=== PATIENT | female | born 2000 | race Caucasian/White ===

== ENCOUNTER 2022-09-30 07:59 | Outpatient (CLI) | payer OTHER, BC, SELFPAY ==
[2022-09-30 08:25] LABS: Basophils Absolute Auto 0.1 K/mm3 (0.0-0.1); Basophils Percent Auto 0.6 % (0.2-1.2); Eosinophils Absolute Auto 0.1 K/mm3 (0-0.3); Eosinophils Percent Auto 1.7 % (0-4.4); Hematocrit 40.2 % (37.0-47.0); Hemoglobin 12.9 g/dL (12.0-15.0); Immature Granulocyte Absolute 0.02 K/mm3 (0.00-0.031); Immature Granulocyte Percent A 0.2 % (0-0.5); Mean Corpuscular HGB Conc 32.1 g/dl (32-36); Mean Corpuscular Hemoglobin 30.6 pg (26-34); Mean Corpuscular Volume 95.5 fl (80-100); Mean Platelet Volume 11.5 fl (7.4-10.4); Monocytes Absolute Auto 0.4 K/mm3 (0.1-0.6); Monocytes Percent Auto 5.1 % (2.6-8.5); Neutrophils Absolute Auto 5.4 K/mm3 (1.3-6.7); Neutrophils Percent Auto 66.4 % (45.5-73.1); Platelet Count Result 222 k/mm3 (150-375); Red Blood Count 4.21 M/mm3 (4.2-5.4); Red Cell Distribution Width 12.2 % (11.5-14.5); White Blood Count 8.1 K/mm3 (4.5-10.0)
== END 2022-09-30 08:00 | disposition home or self-care (01) ==
LOC: ANHLAB 08:09
PROVIDERS: PCP Family Medicine Sports Medicine
DX: R59.1 Generalized enlarged lymph nodes (principal)
CPT/HCPCS: 36415; 85025

== ENCOUNTER 2022-11-02 15:03 | Outpatient (CLI) | payer OTHER, SELFPAY ==
--- NOTE | ~2022-11-02 | XR_ITS ---
EXAMINATION: XR foot RT min 3V DATE: 11/02/2022 16:08 INDICATION: Painful hard spot the plantar surface between the third and fourth toes TECHNIQUE: Weight bearing dorsal plantar, two oblique and lateral views of the right foot were obtai linda. COMPARISON: None. FINDINGS: Alignment is normal. No fracture. Joint spaces are normal. Soft tissues are unremarkable. No dystroph ic calcific lesions or radiopaque foreign bodies. IMPRESSION: 1. Negative right foot radiographs. Reviewed, dictated and finalized at location A. NT CLERK
== END 2022-11-02 15:04 | disposition home or self-care (01) ==
LOC: ANHIMG 15:08
PROVIDERS: PCP Family Medicine Sports Medicine
DX: L84 Corns and callosities (principal)
CPT/HCPCS: 73630

== ENCOUNTER 2022-11-18 07:42 | Outpatient (CLI) | payer OTHER, SELFPAY ==
[2022-11-18 08:22] LABS: Alanine Aminotransferase 25 U/L (6-35); Albumin Level 4.2 g/dL (3.5-5.1); Alkaline Phosphatase 66 U/L (38-126); Anion Gap 8 mmol/L (8-16); Aspartate Amino Transferase 25 U/L (14-36); Bilirubin,Total 0.5 mg/dL (0.2-1.3); Blood Urea Nitrogen 14 mg/dL (7-17); Calcium 9.1 mg/dL (8.4-10.2); Carbon Dioxide 27 mmol/L (22-30); Chloride 103 mmol/L (98-107); Cholesterol 195 mg/dL (0-200); Estimated Glomerular Filt Rate > 60; Glucose 200 mg/dL (65-110); HDL Direct 96 mg/dL; Potassium 4.2 mmol/L (3.4-5.0); Sodium 138 mmol/L (137-145); Triglycerides 94 mg/dL (<150)
[2022-11-18 08:33] LABS: LDL Cholesterol Direct 75 mg/dL
[2022-11-18 10:58] LABS: Creatinine Urine 137.6 mg/dL
[2022-11-18 11:32] LABS: MALB Creatinine Ratio < 4.4 mg/g (0-30); Microalbumin Urine Random < 6.0 mg/L (0-16.7)
== END 2022-11-18 07:43 | disposition home or self-care (01) ==
PROVIDERS: PCP Family Medicine Sports Medicine; Visit Provider Internal Medicine
DX: E10.9 Type 1 diabetes mellitus without complications (principal)
CPT/HCPCS: 36415; 80053; 80061; 82043

== ENCOUNTER 2023-04-14 16:40 | Emergency (ER) | payer OTHER, SELFPAY ==
[2023-04-14 16:49] VITALS: BP 118/70; PULSE 85; RESP 16; TEMP 37.1; O2SAT 100
--- NOTE | 2023-04-14 17:26 | ED.URI ---
HPI - URI/Sore Throat General Chief Complaint: Upper Respiratory Infection Stated Complaint: Sore Throat Time Seen by Provider: 04/14/23 17:17 Source: patient and RN notes reviewed Mode of arrival: ambulatory Limitations: no limitations History of Present Illness HPI Narrative: Patient presents today complaining of a 2 day history of sore throat that has been worsening since onset. Denies any additional symptoms to include fever, cough, congestion, rhinorrhea. Currently rates her pain 5/10, which increases with swallowing. She has been taking some ibuprofen with mild relief. Denies any known sick contacts. Related Data Home Medications Medication Instructions Recorded Confirmed norgestimate 0.25 mg-ethinyl 1 tablet PO DAILY 11/17/22 04/14/23 estradiol 35 mcg tablet (Sprintec (28)) Allergies Allergy/AdvReac Type Severity Reaction Status Date / Time Augmentin AdvReac Intermediate Headache Uncoded 04/14/23 16:47 Review of Systems Review of Systems: CONSTITUTIONAL: Denies body aches, fever, chills, or sweats. EYES: Denies visual changes, redness, or discharge. ENT: Denies rhinorrhea, congestion, or otalgia.+ sore throat CARDIOVASCULAR: Denies chest pain, palpitations, or edema. RESPIRATORY: Denies cough or dyspnea. GASTROINTESTINAL: Denies abdominal pain, nausea, vomiting, or diarrhea. GENITOURINARY: Denies dysuria or hematuria. SKIN: Denies rash, itching, or wounds. MUSCULOSKELETAL: Denies back pain, joint pain, or myalgia. NEUROLOGIC: Denies headache, numbness, tingling, or weakness. PSYCH: Denies depression or anxiety. PMFSH Past Medical History Medical History Diabetes Social History Social History Smoking status: Never smoker Comments At time of signature, I have reviewed and agree with nursing past medical, surgical, social and family history unless otherwise noted. Please see nursing chart for further information. There is no relevant family history pertinent to the presenting complaint Exam Narrative: GENERAL: Well-appearing, well-nourished, and in no acute distress. HEAD: Normocephalic, atraumatic. EYES: EOMI. No redness or drainage. Conjunctivae normal. ENT: Mucous membranes pink and moist. Nares clear. No rhinorrhea. TMs normal bilaterally. Tonsils 2+. Pharynx erythematous. Scant amount of exudate on the tonsils. Uvula midline. NECK: Normal AROM. Supple. Left posterior cervical chain lymphadenopathy. CHEST: No respiratory distress. Clear to auscultation. HEART: Regular rate and rhythm. No murmur appreciated. Normal peripheral pulses. EXTREMITIES: Normal range of motion. No edema. SKIN: Warm, dry, no rash. Capillary refill normal. Normal skin turgor. NEURO: No focal deficits. Alert and oriented x3. Gait steady. PSYCH: Normal affect. No signs of depression or anxiety. Course Course Level of Care: Express Care Visit Vital Signs Vital signs: Vital Signs Temperature 98.7 F 04/14/23 16:49 Pulse Rate 85 04/14/23 16:49 Respiratory Rate 16 04/14/23 16:49 Blood Pressure 118/70 04/14/23 16:49 Pulse Oximetry 100 04/14/23 16:49 Oxygen Delivery Room Air 04/14/23 16:49 Temperature 98.7 F 04/14/23 16:49 Pulse Rate 85 04/14/23 16:49 Respiratory Rate 16 04/14/23 16:49 Blood Pressure 118/70 04/14/23 16:49 Pulse Oximetry 100 04/14/23 16:49 Oxygen Delivery Room Air 04/14/23 16:49 Reviewed MDM - URI/Sore Throat MDM Narrative Medical decision making narrative: Rapid strep negative. Culture pending. Symptoms likely viral in etiology. No prescription medications indicated at this time. Anticipatory guidance given. Differential Diagnosis Differential diagnosis: Likely upper respiratory infection, viral infection, pharyngitis and other (Strep throat) Lab Data Attestation: I reviewed the patient's lab results.
== END 2023-04-14 17:28 | disposition home or self-care (01) ==
PROVIDERS: Emergency Provider Nurse Practitioner; PCP Family Medicine Sports Medicine
DX: J02.9 Acute pharyngitis, unspecified (principal); E11.9 Type 2 diabetes mellitus without complications
CPT/HCPCS: 87081; 87880; 99213; G0463

== ENCOUNTER 2023-05-28 10:13 | Outpatient (CLI) | payer OTHER, SELFPAY ==
--- NOTE | ~2023-05-28 | XR_ITS ---
EXAMINATION: XR foot LT min 3V DATE: 05/28/2023 10:31 INDICATION: Posttraumatic pain to the fourth toe TECHNIQUE: Dorsoplantar, two oblique and lateral views of the left foot were obtained. COMPARISON: None. FINDINGS: Nondisplaced fracture at the middle phalanx of the left fourth toe, fracture extends towards the prox imal articular surface however there is no evident fracture gap or incongruity along the articular co rtex. Alignment is essentially anatomic. No other fractures identified. Joint spaces are normal. Mild soft tissue swelling about the fourth toe. IMPRESSION: 1. Nondisplaced fracture potentially intra-articular of the left fourth middle phalanx. Reviewed, dictated and finalized at location A.
== END 2023-05-28 10:14 | disposition home or self-care (01) ==
LOC: ANHIMG 10:18
PROVIDERS: PCP Family Medicine Sports Medicine
DX: S92.525A Nondisplaced fracture of middle phalanx of left lesser toe(s), initial encounter for closed fracture (principal); X58.XXXA Exposure to other specified factors, initial encounter
CPT/HCPCS: 73630

== ENCOUNTER 2023-11-25 06:45 | Outpatient (CLI) | payer OTHER, SELFPAY ==
[2023-11-25 07:31] LABS: Alanine Aminotransferase 20 U/L (6-35); Albumin Level 4.2 g/dL (3.5-5.1); Alkaline Phosphatase 58 U/L (38-126); Anion Gap 7 mmol/L (8-16); Aspartate Amino Transferase 24 U/L (14-36); Bilirubin,Total 0.4 mg/dL (0.2-1.3); Blood Urea Nitrogen 11 mg/dL (7-17); Calcium 9.4 mg/dL (8.4-10.2); Carbon Dioxide 26 mmol/L (22-30); Chloride 106 mmol/L (98-107); Cholesterol 194 mg/dL (0-200); Estimated Glomerular Filt Rate > 60; Glucose 146 mg/dL (65-110); HDL Direct 95 mg/dL; Potassium 3.9 mmol/L (3.4-5.0); Sodium 139 mmol/L (137-145); Triglycerides 119 mg/dL (<150)
[2023-11-25 07:44] LABS: LDL Cholesterol Direct 88 mg/dL
[2023-11-25 07:49] LABS: Free T4 Free Thyroxine 0.89 ng/mL (0.78-2.19); Vitamin D 25 Hydroxy 49.6 ng/mL
[2023-11-25 10:45] LABS: Creatinine Urine 210.3 mg/dL
[2023-11-25 11:52] LABS: Microalbumin Urine Random < 6.0 mg/L (0-16.7)
[2023-11-25 11:53] LABS: MALB Creatinine Ratio < 2.9 mg/g (0-30)
== END 2023-11-25 06:46 | disposition home or self-care (01) ==
PROVIDERS: PCP Family Medicine Sports Medicine; Visit Provider Nurse Practitioner Family
DX: E11.9 Type 2 diabetes mellitus without complications (principal)
CPT/HCPCS: 36415; 80053; 80061; 82043; 82306; 82607; 84439; 84443

== ENCOUNTER 2024-10-16 07:03 | Outpatient (CLI) | payer OTHER, SELFPAY ==
[2024-10-16 07:43] LABS: Alanine Aminotransferase 23 U/L (6-35); Albumin Level 4.1 g/dL (3.5-5.1); Alkaline Phosphatase 64 U/L (38-126); Anion Gap 10 mmol/L (4-12); Aspartate Amino Transferase 23 U/L (14-36); Bilirubin,Total 0.4 mg/dL (0.2-1.3); Blood Urea Nitrogen 19 mg/dL (7-17); Calcium 9.5 mg/dL (8.4-10.2); Carbon Dioxide 27 mmol/L (22-30); Chloride 103 mmol/L (98-107); Cholesterol 221 mg/dL (0-200); Estimated Glomerular Filt Rate > 60; Glucose 200 mg/dL (65-110); HDL Direct 110 mg/dL; Potassium 4.2 mmol/L (3.4-5.0); Sodium 140 mmol/L (137-145); Triglycerides 85 mg/dL (<150)
[2024-10-16 07:54] LABS: LDL Cholesterol Direct 103 mg/dL
[2024-10-16 09:33] LABS: Free T4 Free Thyroxine 0.96 ng/dL (0.78-2.19); Vitamin D 25 Hydroxy 35.8 ng/mL
[2024-10-16 12:21] LABS: Creatinine Urine 130.9 mg/dL
[2024-10-16 12:38] LABS: Microalbumin Urine Random < 6.0 mg/L (0-16.7)
[2024-10-16 12:39] LABS: MALB Creatinine Ratio < 4.6 mg/g (0-30)
--- OUTSIDE RECORDS SUMMARY | 2024-10-19 11:29 | XMS_ITS | Encounter Summary ---
Author Organization [facility] Address [address] [place] [address]. [place] [address] [place] [address] Care Team Providers Care Crime Data Specialist Name Role Phone Bill Perez MD Primary Care Provider [phone] Encounter Details Date Type Department Care Team (Late st Contact Info) Description 12/29/2023 [facility] Message [facility] [address] [place] [address] [facility] Provider Schedule Appointment - Annual Physical Social History Tobacco Use Types Packs/Day Years Used Date Smoking Tobacco: Never Smokeless Tobacco: Never Alcohol Use Standard Drinks/Week Comments No 0 (1 standard drink = 0.6 oz pur e alcohol) AUDIT-C Answer Date Recorded Frequency of Alcohol Consumption Never 12/27/2018 Average Number of Drinks Not on file 019 Frequency of Binge Drinking Not on file 10/2018 PHQ-2 Answer Date Recorded Patient Health Questionnaire-2 Score 0 09/29/2022 Comments No Sex and Gender Information Value Date Recorded Sex Assigned at Not on file Legal Sex Female 8:36 PM CDT Gender Identity Not on file Sexual Orientation Not on file documented as of this encounter Plan of Treatment Not on file documented as of this encounter Visit Diagnoses Not on filedocumented in this encounter Additional Health Concerns Assessment Noted Time PHQ-9 Depression Total Score: 0 04/09/20 21 2:59 PM CDT documented as of this encounter Care Teams Crime Data Specialist Relationship Specialty Start Date End Date Bill Perez MD [address] [place] [address] PCP - General FAMILY PRACTICE 09/16/18 documented as of this encounter
--- OUTSIDE RECORDS SUMMARY | 2024-10-19 11:29 | XMS_ITS | Clinical Summary ---
Author Organization [facility] [employer] Address [address] [place] [address] Care Team Providers Care Pilot Plant Supervisor Name Role Phone Unavailable Primary Care Provider Unavailabl e Source Comments [facility],non-owned Affiliates and Associated Physician Practices is amultiple site organization consisting of ambulatory clinics and hospital sitesin [place], [place], [place] and [place]. This disclosure is being madepursuant to the Care Everywhere program and may not contain all information available regarding this patient. Last updated 18.[facility] Social History Tobacco Use Types Packs/Day Years Used Date Smoking Tobacco: Never Assessed Sex and Gender Information Value Date Recorded Sex Assigned at Not on file Gender Identity Not on file Sexual Orientation Not on file Plan of Treatment Health Maintenance Due Date Last Done Comments PAP SMEAR 2000 HIV SCREENING 2015 HPV VACCINE (1 - 3-dose series) 2015 CHLAMYDIA/GONORRHEA SCREENING 2016 HEPATITIS C SCREENING 04/01/2018 DTAP/TDAP/TD VACCINES (1 - Tdap) 2019 HEPATITIS B VACCINE (1 of 3 - 19+ 3-dose series) 2019 COVID-19 VACCINE ( - 2023-2 5 season) 2024 INFLUENZA VACCINE (#1) 2024 DEPRESSION SCREENING 09/27/2024 ZOSTER VACCINE (1 of 2) 2050 HIB VACCINE Aged Out No longer eligi ble based on patient's age to complete this topic MENINGOCOCCAL (Group B) VACCINE Aged Out No longer eligible based on patient's age to complete this topic MENINGOCOCCAL VACCINE Aged Out No leola fide eligible based on patient's age to complete this topic PNEUMOCOCCAL VACCINE Aged Out No long er eligible based on patient's age to complete this topic
--- OUTSIDE RECORDS SUMMARY | 2024-10-19 11:29 | XMS_ITS | Referral Summary ---
Author Organization [facility] Address [address] [place] [address] Care Team Providers Care Flea Market Seller Name Role Phone Unavailable Primary Care Provider Unavailabl e Source Comments [facility],non-owned Affiliates and Associated Physician Practices is amultiple site organization consisting of ambulatory clinics and hospital sitesin [place], [place], [place] and [place]. This disclosure is being madepursuant to the Care Everywhere program and may not contain all information available regarding this patient. Last updated 18.[facility] [employer] Social History Tobacco Use Types Packs/Day Years Used Date Smoking Tobacco: Never Assessed Sex and Gender Information Value Date Recorded Sex Assigned at Not on file Gender Identity Not on file Sexual Orientation Not on file Plan of Treatment Not on file
--- OUTSIDE RECORDS SUMMARY | 2024-10-19 11:29 | XMS_ITS | Patient Health Summary ---
Author Organization [facility] Address [address] [place] [address] Care Team Providers Care Investment Analyst Name Role Phone Unavailable Primary Care Provider Unavailabl e Note from [facility],non-owned Affiliates and Associated Physician Practices is amultiple site organization consisting of ambulatory clinics and hospital sitesin [place], [place], [place] and [place]. This disclosure is being madepursuant to the Care Everywhere program and may not contain all information available regarding this patient. Last updated 18.[facility] Social History Tobacco Use Types Packs/Day Years Used Date Smoking Tobacco: Never Assessed Sex and Gender Information Value Date Recorded Sex Assigned at Not on file Gender Identity Not on file Sexual Orientation Not on file
--- OUTSIDE RECORDS SUMMARY | 2024-10-19 11:29 | XMS_ITS | Clinical Summary ---
Author Organization [facility] Address [address] [place] [address]. [place] [address] [place] [address] Care Team Providers Care Record Tabulating Clerk Name Role Phone Bill Perez MD Primary Care Provider Allergies Active Allergy Reactions Criticality Noted Date Comments Amoxicillin-Pot Clavulanate Headache Low 01/16/20 22 Cephalexin Headache 02/26/2024 Medications SPRINTEC 28 0.25-35 MG-MCG tablet Take 1 tablet by mouth nightly at bedtime. 9 Active LANTUS SOLOSTAR 100 UNIT/ML injection (PEN) Inject 20 Units into the skin every morning. Inject 20 units sub-q in the morning and 3 units at night 2 Active INPEN [id number] -HUMALOG Device Inject into the skin see administration instructions. Inject 1:8 ICR 0.5-1 UNITS FOR EVERY 40 IF BG>140 AC. MAX UP TO 60 UNITS A DAY 4 Active insulin glargine (LANTUS) 100 UNIT/ML injection (PEN) Inject 1.5-3 Units into the skin nightly at bedtime. Dosed based on BG Active Multiple Vitamins-Casting Wheel Operator als (MULTIVITAMIN ADULT) Chew Tab Chew 1 chewable tablet by mouth daily. Active HUMALOG 100 UNIT/ML injection (CARTRIDGE) INJECT A MAX 40 UNITS SUBCUTANEOUSLY DIRECTED. 1 UNIT FOR EVERY 8 GRAMS OF CARBS AND 1 UNIT FOR 50 MG/DL GREATER THAN 150 MG/DL. 4 Active Active Problems Problem Noted Date Diagnosed Date Enteritis 02/26/2024 Paronychia of finger 08/03/2017 Type 1 diabetes mellitus wit h hyperglycemia ([facility]) 08/29/2012 Overview (12/28/2018): seeing phone manager Resolved Problems Problem Noted Date Diagnosed Date Resolved Date Never smoked tobacco 02/26/2015 020 Immunizations Name Administration Dates Next Due Dtap 07/05/2001, 1,2000,06/17 Dtap (Generic) 2000 Dtap/Hep B/Ipv 07/05/2001, 1,2000,06/12 Hepatitis B 07/05/2001,2000,2000 Hib Vaccine, Prp-Omp 07/05/2001,2000,06/17 Influenza Adult (Generic) 06/30/2018 MMR 04/12/2001 MMR (Generic) 04/29/2011,04/12/2001 Menactra 05/18/2017 Meningococcal Vac A,C,Y,W-135 Sc 05/18/2017 Polio Ipv (Generic) 04/29/2011, 1,2000,06/17 Tdap (Generic) 04/29/2011 Tdap (Historical Only-select from [employer]) 12/27/2018 Social History Tobacco Use Types Packs/Day Years Used Date Smoking Tobacco: Never Passive Smoke Exposure: Never Smokeless Tobacco: Never Tobacco Cessation:Counseling Given: No Alcohol Use Standard Drinks/Week Comments No 0 (1 standard drink = 0.6 oz pur e alcohol) [facility] Utilities Answer Date Recorded In the past 12 months has e Shareable Social, gas, oil, or water Box[employer] threatened to shut off services in your home? No 02/26/2024 Humiliation, Afraid, Rape, and Kick questionnair e Answer Date Recorded Within the last year, have y ou been afraid of your partner or ex-partner? No 02/26/2024 Within the last year, have y ou been humiliated or emotionally abused in other ways by your partner or ex-partner? No Within the last year, have y ou been kicked, hit, slapped, or otherwise physically hurt by your partner or ex-partner? No 02/26/2024 Within the last year, have y ou been raped or forced to have any kind of sexual activity by your partner or ex-partner? No 02/26/2024 AUDIT-C Answer Date Recorded Frequency of Alcohol Consumption Never 12/27/2018 Average Number of Drinks Not on file 019 Frequency of Binge Drinking Not on file 10/2018 Overall Financial Resource Strain (CARDIA) Answe r Date Recorded How hard is it for you to pa y for the very basics like food, housing, medical care, and heating? Not hard at all 02/26/2024 PHQ-2 Answer Date Recorded Patient Health Questionnaire-2 Score 0 03/08/2024 Hunger Vital Sign Answer Date Recorded Within the past 12 months, y ou worried that your food would run out before you got the money to buy more. Never true 02/26/20 24 Within the past 12 months, t he food you bought just didn't last and you didn't have money to get more. Never true 02/26/2024 PRAPARE - Transportation Answer Date Re corded In the past 12 months, has l ack of transportation kept you from medical appointments or from getting medications? No 09/2023 In the past 12 months, has l ack of transportation kept you from meetings, work, or from getting things needed for daily living? No 02/26/2024 Housing Stability Vital Sign Answer Herb e Recorded In the last 12 months, was t here a time when you were not able to pay the mortgage or rent on time? No 02/26/2024 In the past 12 months, how m any times have you moved where you were living? 1 02/26/2024 At any time in the past 12 m [facility], were you homeless or living in a [facility] (including now)? No 02/26/2024 Comments No Sex and Gender Information Value Date Recorded Sex Assigned at Not on file Legal Sex Female 8:36 PM CDT Gender Identity Not on file Sexual Orientation Not on file Last Filed Vital Signs Vital Sign Reading Time Taken Comments Blood Pressure 112/69 03/08/2024 3:13 PM CDT Pulse 91 03/08/2024 3:13 PM CDT Temperature 36.9 ??C (98.4 ??F) 03/08/2024 3:13 PM CD T Respiratory Rate 18 03/08/2024 3:13 PM CDT Oxygen Saturation 100% 03/08/2024 3:13 PM CDT Inhaled Oxygen Concentration - - Weight 64 kg (141 lb 3.2 oz) 03/08/2024 3:13 PM CDT Height 160 cm (5' 3 ) 03/08/2024 3:13 PM CDT Body Mass Index 25.01 03/08/2024 3:13 PM CDT Plan of Treatment Health Maintenance Due Date Last Done Comments Kidney Health Evaluation 2000 Annual Physical 2003 HPV Vaccines (1 - 3-dose series) 2015 Hepatitis C 2018 Lipid Panel 04/29/2022 04/29/2021, 07/04/2020 Hemoglobin A1C 02/03/2023 08/06/2022, 12/27, 08/05/2021, Additional history exists COVID-19 Vaccine ( season) 2024 Cervical Cancer Screening Pap Smear (Age 21 to 29) Every 3 Years 06/13/2024 06/13/2021 Influenza Adult (#1) 2024 06/30/2018 Diabetes: Retinopathy Eye Exam 12/05/2024 12/05/2022, 10/28/2021 Pneumococcal Vaccine: Pediatrics (0 to 5 Years) and At-Risk Patients (6 to 64 Years) (1 of 2 - PCV) 03/06/2025 Postponed from 2006 (Patient Refused) Cervical Cancer Screening 03/08/2025 Po stponed from 06/13/2024 (Going to Outside Clinic) PHQ-2 (Physician [place]) 03/08/2025 03/08/2024 DTaP, Tdap and Td Vaccines (7 - Td or Tdap) 12/27/2028 12/27/2018, 04/29/2011, 07/05/2001, Additional history exists Hepatitis B Vaccines Completed 07/05/2001, 07/05/2001, 2000, Additional history exists Meningococcal Vaccine Aged Out 05/18/2017, 017 No longer eligible based on patient's age to complete this topic Meningococcal B Vaccine Aged Out No l onger eligible based on patient's age to complete this topic RSV Immunizations Under 20 Months Aged Out No longer eligible based on patient's age to complete this topic Procedures Procedure Name Priority Date/Time Associated Diagnosis Comments DIABETIC RETINOPATHY EXAM (NEGATIVE)(SCAN ORDER) Routine 12/05/2022 HEMOGLOBIN, GLYCOSYLATED Routine 08/06/2022 Type 1 diabetes mellitus with hyperglycemia ([facility]) OUTSIDE CYTOPATH CERV/VAG INTERPRET (PAP) 06/13/2021 LIPID PANEL Routine 04/29/2021 11:09 AM CDT Type 1 diabetes mellitus with hyperglycemia ([facility]) from Last 3 Months or Most Recently Relevant to Health Maintenance Results * DIABETIC RETINOPATHY EXAM (NEGATIVE)(SCAN) (12/05/2022) [employer] Scanned SCANNING Final Resu lt Performing Organization Address City/[facility]/ZIP Co de Phone Number [facility] * HEMOGLOBIN, GLYCOSYLATED (08/06/2022) HGB A1C 7.1 % [facility] Comment:Provider aware in cl inic 08/06/2022 Camila Ambrosio MD LABORATORY Final Result Performing Organization Address City/[facility]/ZIP Co de Phone Number [facility] [address] [address], * PAP SMEAR WITH HPV (06/13/2021) 06/13/2021 [employer] Scanned SCANNING Final Resu lt * (ABNORMAL) LIPID PANEL (04/29/2021 11:09 AM CDT) CHOLESTEROL 205(H) <200 MG/DL 04/29/2021 6:[address] ANSON TRIGLYCERIDES 108 <150 MG/DL 04/29/2021 6:[address] HDL 99 >40 MG/DL 04/29/2021 6:[address] LDL-C 84 <100 MG/DL 04/29/2021 6:[address] VLDL CALCULATION 22 5 - 28 MG/DL 04/29/2021 6:[address] CHOL/HDL RATIO 2.1 0.0 - 4.0 04/29/2021 6:[address] LDL/HDL 0.8 0.41 - 2.13 04/29/2021 6:[address] NON HDL CHOLESTEROL 106 <140 MG/DL 04/29/2021 6:[address] 04/29/2021 11:0 9 AM CDT us Camila Ambrosio MD LABORATORY Final Result [address] [place], [place] [address] from Last 3 Months or Most Recently Relevant to Health Maintenance Insurance [employer] Advance Directives * Full Code (Latest Code Status on File) Date Activated Date Inactivated Comments 02/26/2024 6:08 PM 02/27/2024 3:53 PM Care Teams Record Tabulating Clerk Relationship Specialty Start Date End Date Bill Perez MD [address] [place] [address] PCP - General FAMILY PRACTICE 09/16/18
--- OUTSIDE RECORDS SUMMARY | 2024-10-19 11:30 | XMS_ITS | Encounter Summary ---
Author Organization [facility] Address [address] [place] [address]. [place], [place] [address] [place] [address] Care Team Providers Care Ground Operations Superintendent Name Role Phone Bill Perez MD Primary Care Provider [phone] Encounter Details Date Type Department Care Team (Late st Contact Info) Description 09/03/2001 Abstract [facility] Conversion Md, Generic ConversionMD Social History Tobacco Use Types Packs/Day Years Used Date Smoking Tobacco: Never Assessed Comments Unknown Sex and Gender Information Value Date Recorded Sex Assigned at Not on file Legal Sex Female 8:36 PM CDT Gender Identity Not on file Sexual Orientation Not on file documented as of this encounter Plan of Treatment Not on file documented as of this encounter Visit Diagnoses Not on filedocumented in this encounter Additional Health Concerns Infection Onset Date Last Indicated Resolved Time COVID-19 Rule Out 07/28/2021 07/28/2021 10/16/2021 11:07 AM LAW ENFORCEMENT OFFICER COVID-19 Rule Out 08/04/2021 08/04/2021 10/16/2021 11:11 AM LAW ENFORCEMENT OFFICER documented as of this encounter Care Teams Ground Operations Superintendent Relationship Specialty Start Date End Date Bill Perez MD [address] [facility] [address] [place] [address] PCP - General FAMILY PRACTICE 09/16/18 documented as of this encounter
== END 2024-10-16 07:04 | disposition home or self-care (01) ==
PROVIDERS: PCP Family Medicine Sports Medicine; Visit Provider Nurse Practitioner Family
DX: E10.9 Type 1 diabetes mellitus without complications (principal); Z79.4 Long term (current) use of insulin
CPT/HCPCS: 36415; 80053; 80061; 82043; 82306; 82607; 84439; 84443

== ENCOUNTER 2025-05-08 07:08 | Outpatient (CLI) | payer OTHER, SELFPAY ==
--- OUTSIDE RECORDS SUMMARY | 2025-05-08 07:12 | XMS_ITS | Clinical Summary ---
Author Organization [facility] [employer] Address [address] [place] [address] Care Team Providers Care Kiln Burner Helper Name Role Phone Unavailable Primary Care Provider Unavailabl e Source Comments [facility] [employer],non-owned Affiliates and Associated Physician Practices is amultiple site organization consisting of ambulatory clinics and hospital sitesin [place], [place], [place] and [place]. This disclosure is being madepursuant to the Care Everywhere program and may not contain all information available regarding this patient. Last updated 18.[facility] [employer] Social History Tobacco Use Types Packs/Day Years Used Date Smoking Tobacco: Never Assessed Comments Unknown Sex and Gender Information Value Date Recorded Sex Assigned at Not on file Legal Sex Female 10:57 AM CDT Gender Identity Not on file Sexual Orientation Not on file Plan of Treatment Health Maintenance Due Date Last Done Comments HIV SCREENING 2015 HPV VACCINE (1 - 3-dose series) 2015 CHLAMYDIA/GONORRHEA SCREENING 2016 HEPATITIS C SCREENING 04/01/2018 DTAP/TDAP/TD VACCINES (1 - Tdap) 2019 HEPATITIS B VACCINE (1 of 3 - 19+ 3-dose series) 2019 COVID-19 VACCINE (1 - 2023-2 5 season) 2024 DEPRESSION SCREENING 09/27/2024 INFLUENZA VACCINE (#1) 2025 ZOSTER VACCINE (1 of 2) 2050 HIB VACCINE Aged Out No longer eligi ble based on patient's age to complete this topic MENINGOCOCCAL (Group B) VACC INE SHARED DECISION-MAKING Aged Out No longer eligibl e based on patient's age to complete this topic MENINGOCOCCAL GROUPS A/C/Y/W VACCINE Aged Out No longer eligible b ased on patient's age to complete this topic PNEUMOCOCCAL VACCINE Aged Out No long er eligible based on patient's age to complete this topic
[2025-05-08 08:15] LABS: Alanine Aminotransferase 23 U/L (6-35); Albumin Level 4.0 g/dL (3.5-5.1); Alkaline Phosphatase 75 U/L (38-126); Anion Gap 6 mmol/L (4-12); Aspartate Amino Transferase 29 U/L (14-36); Bilirubin,Total 0.4 mg/dL (0.2-1.3); Blood Urea Nitrogen 12 mg/dL (7-17); Calcium 9.0 mg/dL (8.4-10.2); Carbon Dioxide 26 mmol/L (22-30); Chloride 102 mmol/L (98-107); Cholesterol 211 mg/dL (0-200); Estimated Glomerular Filt Rate > 60; Glucose 250 mg/dL (65-110); HDL Direct 98 mg/dL; Potassium 4.3 mmol/L (3.4-5.0); Sodium 134 mmol/L (137-145); Total Protein 7.2 g/dL (6.3-8.2); Triglycerides 186 mg/dL (<150)
[2025-05-08 08:40] LABS: Free T4 Free Thyroxine 0.88 ng/dL (0.78-2.19)
[2025-05-08 08:51] LABS: Thyroid Stimulating Hormone 3.850 uIU/mL (0.465-4.680)
[2025-05-08 09:10] LABS: Vitamin B12 466.0 pg/mL (239-931)
== END 2025-05-08 07:09 | disposition home or self-care (01) ==
LOC: ANHLAB 07:10
PROVIDERS: PCP Family Medicine Sports Medicine; Visit Provider Nurse Practitioner Family
DX: E10.9 Type 1 diabetes mellitus without complications (principal)
CPT/HCPCS: 36415; 80053; 80061; 82306; 82607; 84439; 84443

== ENCOUNTER 2025-05-16 11:27 | Outpatient (CLI) | payer OTHER, SELFPAY ==
--- OUTSIDE RECORDS SUMMARY | 2025-05-16 12:02 | XMS_ITS | Clinical Summary ---
Author Organization [facility] Address [facility] [place] [address] Care Team Providers Care Scoop Machine Operator Name Role Phone Bill Perez MD Primary [...] 3 units at night 2 Active INPEN [id number] -HUMALOG Device Inject into the skin see administration instructions. Inject 1:8 ICR 0.5-1 UNITS FOR EVERY 40 IF BG>140 AC. MAX UP TO 60 UNITS A DAY 4 Active insulin glargine (LANTUS) 100 UNIT/ML injection (PEN) Inject 1.5-3 Units into the skin nightly at bedtime. Dosed based on BG Active Multiple Vitamins-Entertainer Or Variety Artist als (MULTIVITAMIN ADULT) Chew Tab Chew 1 [...] Type 1 diabetes mellitus wit h hyperglycemia ([facility]) 08/29/2012 Overview (12/28/2018): seeing environmental department manager Resolved Problems Problem Noted Date Diagnosed Date Resolved Date Never smoked tobacco 02/26/2015 020 Encounters Date Type Department Care Team Description 05/08/2025 Scan [facility] Scanned, Doc [facility] Lab (SCAN) 05/01/2025 Scan [facility] Scanned, Doc Med Group from Last 3 Months Immunizations Immunization Administration Dates Next Due Dtap 07/05/2001, 1,2000,06/17 Dtap (Generic) 2000 Dtap/Hep B/Ipv 07/05/2001, 1,2000,06/12 Hepatitis B 07/05/2001,2000,2000 Hib Vaccine, Prp-Omp 07/05/2001,2000,06/17 Influenza Adult (Generic) 06/30/2018 MMR 04/12/2001 MMR (Generic) 04/29/2011,04/12/2001 Menactra 05/18/2017 Meningococcal Vac A,C,Y,W-135 Sc 05/18/2017 Polio Ipv (Generic) 04/29/2011, 1,2000,06/17 Tdap (Generic) 04/29/2011 Tdap (Historical Only-select from magnify glass) 12/27/2018 Social History Tobacco Use Types Packs/Day Years Used Date Smoking Tobacco: Never Passive Smoke Exposure: Never Smokeless Tobacco: Never Tobacco Cessation:Counseling Given: No Alcohol Use Standard Drinks/Week Comments No 0 (1 standard drink = 0.6 oz pur e alcohol) [facility] Utilities Answer Date Recorded In the past 12 months has e electric, gas, oil, or water company threatened to shut off services in your [...] any time in the past 12 m [facility], were you homeless or living in a correction (including now)? No 02/26/2024 Comments No Sex and Gender Information Value Date Recorded Sex Assigned at Not on file Legal Sex Female 8:36 PM CDT Gender Identity Not on file Sexual Orientation Not on file Last Filed Vital Signs Vital Sign Reading Time Taken Comments Blood Pressure 112/69 03/08/2024 3:13 PM CDT Pulse 91 03/08/2024 3:13 PM CDT Temperature 36.9 C (98.4 F) 03/08/2024 3:13 PM CDT Respiratory Rate 18 03/08/2024 3:13 PM CDT Oxygen Saturation 100% 03/08/2024 3:13 PM CDT Inhaled Oxygen Concentration - - Weight 64 kg (141 lb 3.2 oz) 03/08/2024 3:13 PM CDT Height 160 cm (5' 3) 03/08/2024 3:13 PM CDT Body Mass Index 25.01 03/08/2024 3:13 PM CDT Plan of Treatment Health Maintenance Due Date Last Done Comments Kidney Health Evaluation 2000 Annual Physical 2003 HPV Vaccines (1 - 3-dose series) 2015 Hepatitis C 2018 Pneumococcal Vaccine: Pediatrics (0 to 5 Years) and At-Risk Patients (6 to 49 Years) (1 of 2 - PCV) 2019 Lipid Panel 04/29/2022 04/29/2021, 07/04/2020 Hemoglobin A1C 02/03/2023 08/06/2022, 04/2 09/2021, 08/05/2021, Additional history exists COVID-19 Vaccine ( season) 2024 Cervical Cancer Screening Pap Smear (Age 21 to 29) Every 3 Years 06/13/2024 06/13/2021 Cervical Cancer Screening 06/13/2024 PHQ-2 (Physician [place]) 09/27/2024 03/08/2024 Diabetes: Retinopathy Eye Exam 12/05/2024 12/05/2022, 10/28/2021 DTaP, Tdap and Td Vaccines (7 - [...] Procedure Name Priority Date/Time Associated Diagnosis Comments OUTSIDE LAB (SCAN ORDER) 05/08/2025 DIABETIC RETINOPATHY EXAM (NEGATIVE)(SCAN ORDER) Routine 12/05/2022 HEMOGLOBIN, GLYCOSYLATED Routine 08/06/2022 Type 1 diabetes mellitus with hyperglycemia OUTSIDE CYTOPATH CERV/VAG INTERPRET (PAP) 06/13/2021 LIPID PANEL Routine 04/29/2021 11:09 AM CDT Type 1 diabetes mellitus with hyperglycemia from Last 3 Months or Most Recently Relevant to Health Maintenance Results * OUTSIDE LAB (SCAN ORDER) (05/08/2025) 05/08/2025 Result [facility] Scanned SCANNING Final Resu lt * DIABETIC RETINOPATHY EXAM (NEGATIVE)(SCAN) (12/05/2022) Result [facility] Scanned SCANNING Final Resu lt [facility] * HEMOGLOBIN, GLYCOSYLATED (08/06/2022) HGB A1C 7.1 % [facility] Comment:Provider aware in cl inic 08/06/2022 Camila Ambrosio MD LABORATORY Final Result [facility] [address] [address], * PAP SMEAR WITH HPV (06/13/2021) 06/13/2021 [facility] Scanned SCANNING Final Resu lt * (ABNORMAL) LIPID PANEL (04/29/2021 11:09 AM CDT) CHOLESTEROL 205(H) <200 MG/DL 04/29/2021 6:[address] TRIGLYCERIDES 108 <150 MG/DL 04/29/2021 6:22 PM [...] CHOLESTEROL 106 <140 MG/DL 04/29/2021 6:[address] 04/29/2021 11:0 9 AM CDT us Camila Ambrosio MD LABORATORY Final Result [address] [place] [address], from Last 3 Months or Most Recently Relevant to Health Maintenance Insurance [employer] Advance Directives * Full Code (Latest Code Status on File) Date Activated Date Inactivated Comments 02/26/2024 6:08 PM 02/27/2024 3:53 PM Care Teams Scoop Machine Operator Relationship Specialty Start Date End Date Bill Perez MD [address] [address] PCP - General FAMILY PRACTICE 09/16/18
--- OUTSIDE RECORDS SUMMARY | 2025-05-16 12:02 | XMS_ITS | Encounter Summary ---
Author Organization [facility] Address [address] [place] [address] Care Team Providers Care Beater Lead Name Role Phone iBll Perez MD Primary Care Provider [phone] Encounter Details Date Type Department Care Team (Late st Contact Info) Description 09/03/2001 Abstract [facility] Conversion Md, Generic Conversion, Social History Tobacco Use Types Packs/Day Years [...] Rule Out 07/28/2021 07/28/2021 10/16/2021 11:07 AM POWDER PRESS OPERATOR COVID-19 Rule Out 08/04/2021 08/04/2021 10/16/2021 11:11 AM POWDER PRESS OPERATOR documented as of this encounter Care Teams Beater Lead Relationship Specialty Start Date End Date Bill Perez MD [address] [facility] [address] [place] [address] PCP - General FAMILY PRACTICE 09/16/18 documented as of this encounter
--- OUTSIDE RECORDS SUMMARY | 2025-05-16 12:02 | XMS_ITS | Encounter Summary ---
Author Organization [facility] Address [address] [place] [address] Care Team Providers Care Commercial Teller Name Role Phone Bill Perez MD Primary Care Provider [phone] Encounter Details Date Type Department Care Team (Late st Contact Info) Description 12/29/2023 [employer] Message [facility] [address] [place] [address] [facility] Provider Schedule Appointment - Annual Physical Social [...] documented as of this encounter Care Teams Commercial Teller Relationship Specialty Start Date End Date Bill Perez MD [address] [facility] [address] [place] [address] PCP - General FAMILY PRACTICE 09/16/18 documented as of this encounter
--- OUTSIDE RECORDS SUMMARY | 2025-05-16 12:02 | XMS_ITS | Clinical Summary ---
Author Organization [facility] Address [address] [place] [address] Care Team Providers Care Syrup Filterer Name Role Phone Unavailable Primary Care Provider Unavailabl e Source Comments [facility],non-owned Affiliates and Associated Physician Practices is amultiple site organization consisting of ambulatory clinics and hospital sitesin [place], [place], [place] and [place]. This disclosure is being madepursuant to the Care Everywhere program and may not contain all information available regarding this patient. Last updated 18.[facility] Social History Tobacco Use Types Packs/Day Years [...]
--- OUTSIDE RECORDS SUMMARY | 2025-05-16 12:02 | XMS_ITS | Encounter Summary ---
Author Organization [facility] Address [address] [place] [address] Care Team Providers Care Unit Educator Name Role Phone Bill Perez MD Primary Care Provider [phone] Reason for Visit * Reason Comments Lab (SCAN) Encounter Details Date Type Department Care Team (Latest Contact Info) Description 05/08/2025 Scan HEALTH INFO SRVCS Scanned, Doc Med Group Lab (SCAN) Social History Tobacco Use Types Packs/Day Years Used Date Smoking Tobacco: Never Passive Smoke Exposure: Never Smokeless Tobacco: Never Alcohol Use Standard Drinks/Week Comments No 0 (1 standard drink = 0.6 oz pur e alcohol) [facility] Utilities Answer Date Recorded In the past 12 months has e [employer], gas, oil, or water [employer] threatened to shut off services in your [...] any time in the past 12 m [facility], were you homeless or living in a nursing home (including now)? No 02/26/2024 Comments No Sex and Gender Information Value Date Recorded Sex Assigned at Not on file Legal Sex Female 8:36 PM CDT Gender Identity Not on file Sexual Orientation Not on file documented as of this encounter Functional Status * Are you deaf or do you have serious difficulty hearing Answer Date of Assessment Author Status No 02/26/2024 6:29 PM TRENTT Alexus Hendrix RN Active * Are you blind or do you have serious difficulty seeing, even when wearing glasses? Answer Date of Assessment Author Status No 02/26/2024 6:29 PM CDT Alexus Hendrix RN Active * Do you have serious difficulty walking or climbing stairs? Answer Date of Assessment Author Status No 02/26/2024 6:29 PM TRENTT Alexus Hendrix RN Active * Do you have difficulty dressing or bathing? Answer Date of Assessment Author Status No 02/26/2024 6:29 PM CDT Alexus Hendrix RN Active * Because of a physical, mental, or emotional condition, do you have difficulty doing errands alone such as visiting a doctor's office or shopping? Answer Date of Assessment Author Status No 02/26/2024 6:29 PM CDT Alexus Hendrix RN Active documented as of this encounter Mental Status * Because of a physical, mental, or emotional condition, do you have serious difficulty concentrating, remembering, or making decisions? Answer Entry Date Author Status No 02/26/2024 6:29 PM CDT Alexus Hendrix RN Active documented in this encounter Plan of Treatment Not on file documented as of this encounter Procedures Procedure Name Priority Date/Time Associated Diagnosis Comments OUTSIDE LAB (SCAN ORDER) 05/08/2025 documented in this encounter Results * OUTSIDE LAB (SCAN ORDER) (05/08/2025) 05/08/2025 us Doc Med Group Scanned SCANNING Final Resu lt documented in this encounter Visit Diagnoses Not on filedocumented in this encounter Additional Health Concerns Assessment Noted Time PHQ-9 Depression Total Score: 0 04/09/20 21 2:59 PM CDT documented as of this encounter Care Teams Unit Educator Relationship Specialty Start Date End Date Bill Perez MD [address] [address] PCP - General FAMILY PRACTICE 09/16/18 documented as of this encounter
[2025-05-16 12:40] LABS: MALB Creatinine Ratio < 61.9 mg/g (0-30)
== END 2025-05-16 11:28 | disposition home or self-care (01) ==
LOC: ANHLAB 11:28
PROVIDERS: PCP Family Medicine Sports Medicine; Visit Provider Nurse Practitioner Family
DX: E10.9 Type 1 diabetes mellitus without complications (principal)
CPT/HCPCS: 82043

== ENCOUNTER 2025-06-27 15:37 | Outpatient (CLI) | payer OTHER, SELFPAY ==
[2025-06-27 16:50] LABS: MALB Creatinine Ratio < 6.4 mg/g (0-30)
== END 2025-06-27 15:38 | disposition home or self-care (01) ==
LOC: ANHLAB 15:37
PROVIDERS: PCP Family Medicine Sports Medicine; Visit Provider Nurse Practitioner Family
DX: E10.9 Type 1 diabetes mellitus without complications (principal)
CPT/HCPCS: 82043